=== PATIENT | male | born 1990 | race Caucasian/White ===

== ENCOUNTER 2020-02-22 06:43 | Emergency (ER) | payer OTHER ==
[~2020-02-22] VITALS: Ht 180.3 cm; Wt 86.2 kg
[~2020-02-22 06:43] MED LIST: MAVYRET 100-401 EACH PO; NALOXONE H0.4 MG/11 INJ
--- OUTSIDE RECORDS SUMMARY | 2020-02-22 06:46 | XMS ---
PreManage Notification: BRIE ARMENTA [employer] Specialist Events No recent Security Events currently on file CRITERIA MET - [facility] CARE PROVIDERS There are no care providers on record at this time. Mike has no Care Guidelines for this patient. Fidel VISIT COUNT (12 MO.) 2 PATRICIO Wilkins TOTAL 2 NOTE: Visits indicate total known visits. ED/UCC VISIT TRACKING (12 MO.) 02/22/2020 06:44 [facility] [place] TYPE: Emergency COMPLAINT: - POSSIBLE OD 12/26/2019 16:[address] [facility] [place] TYPE: Emergency COMPLAINT: - POSS OVERDOSE DIAGNOSES: - Poisoning by fentanyl or fentanyl analogs, accidental (unintentional), initial encounter - POISONING BY FENTANYL OR FENTANYL ANALOGS, ACCIDENTAL, INIT - Other jail (current) drug therapy - Nicotine dependence, unspecified, uncomplicated - Allergy status to penicillin INPATIENT VISIT TRACKING (12 MO.) No inpatient visits to display in this time frame [email or web address]
== END 2020-02-22 11:58 | disposition home or self-care (01) ==
LOC: ED 06:43
DX: T50.901A Poisoning by unspecified drugs, medicaments and biological substances, accidental (unintentional), initial encounter (principal); R41.82 Altered mental status, unspecified; Z88.0 Allergy status to penicillin; Z79.899 Other long term (current) drug therapy
CPT/HCPCS: 51701; 80053; 85025; 99285-25; G0480; J2310